=== PATIENT | female | born 1970 | race Caucasian/White ===

== ENCOUNTER 2020-08-16 17:52 | Emergency (ER) | payer OTHER ==
[~2020-08-16] VITALS: Ht 157.5 cm; Wt 85.3 kg
--- NOTE | 2020-08-16 18:15 | NUR ---
ED Nurse Note: patient from home and walked in due to hemorrhoids noticed this morning. Denies constipation. Pt is AOx4, calm and cooperative to care, VSS, on RA, afebrile on triage.
--- NOTE | 2020-08-16 18:17 | NUR ---
ED Nurse Note: ERMD at bedside.
[2020-08-16] MEDS ORDERED: DOCUSATE SODIU100 MG ORAL (18:22)
[2020-08-16] MEDS ORDERED: sitz bath (18:22)
[2020-08-16] MEDS ORDERED: ANUSOL-HC30 GM RC (18:22)
[2020-08-16 18:23] VITALS: BP 130/71
--- NOTE | 2020-08-16 18:24 | Emergency Room Report ---
History of Present Illness General Chief Complaint: Skin Rash/Abscess Source: Patient Present Illness HPI Disclaimer: Please note that this report is being documented using DRAGON technology. This can lead to erroneous entry secondary to incorrect interpretation by the dictating instrument. HPI: 49-year-old female history of hemorrhoid presents for evaluation of rectal discomfort. The patient noted some pressure around her rectum having a bowel movement earlier this morning. There was some pink coloring to the bathroom tissue. Denied gross bleeding. Denies significant pain but noticed increased pressure throughout the day. Denies abdominal pain, nausea, vomiting, diarrhea, prior abscess. No other symptoms reported at this time. PMH: Reviewed PSH: Reviewed Allergies: Reviewed Social Hx: Reviewed Allergies: Coded Allergies: LIDOCAINE (Verified Allergy, Unknown, 08/16/20) COVID-19 Screening Contact w/high risk pt: No Experienced COVID-19 symptoms?: No COVID-19 Testing performed [employer]: Yes COVID-19 Screening: Negative COVID-19 COVID-19 Testing Source: 02/2020 Review of Systems All Other Systems: negative except mentioned in HPI Physical Exam Vital Signs Date Time Temp Pulse Resp B/P (MAP) Pulse Ox O2 Delivery O2 Flow Rate FiO2 08/16/20 18:01 98.1 89 20 130/71 (90) 95 Room Air General: Awake and alert, no acute distress HEENT: NC/AT. EOMI. Resp: Normal work of breathing Abdomen: Soft, nontender, nondistended. Rectal: Small nonthrombosed soft nonbleeding external hemorrhoid. Skin: Intact. No abrasions, laceration or rash over the exposed skin MSK: Normal tone and bulk. Moving all extremities. No obvious deformity. Neuro: Awake and alert. Mentating appropriately Medical Decision Making Diagnostic Impression: Primary Impression: External hemorrhoid ER Course 49-year-old female presents for evaluation of rectal discomfort. She has a small nonthrombosed external hemorrhoid. No active bleeding. She is otherwise well appearing and shows no signs of infection or other significant comor bidities. Will prescribe Anusol, stool softeners and sitz bath. She can follow-up with her PMD. Discussed symptoms of thrombosed hemorrhoid and reasons to return to the emergency department. She understands and agrees with this treatment plan. Last Vital Signs Date Time Temp Pulse Resp B/P (MAP) Pulse Ox O2 Delivery O2 Flow Rate FiO2 08/16/20 18:01 98.1 89 20 130/71 (90) 95 Room Air Disposition: HOME, SELF-CARE Condition: Stable Scripts [sitz bath] No Conflict Check #1 Prov: Tree Urbina MD 08/16/20 Hydrocortisone Hc 2.5% Cream (ANUSOL-HC 2.5% CREAM) Y Cr 5 GM RC BID for 5 Days, #30 GM Prov: Tree Urbina MD 08/16/20 Docusate Sodium* (DOCUSATE SODIUM*) 100 Mg Capsule 100 MG ORAL THREE TIMES A DAY for 5 Days, #20 CAP Prov: Tree Urbina MD 08/16/20 Patient Instructions: Disposable Sitz Bath, Hemorrhoids Additional Instructions: Follow-up with your doctor to discuss hemorrhoids and possible need for surgical excision. Soak in the sitz bath's and apply the topical medications as instructed. Return to the emergency department new or worsening symptoms. Tree Urbina MD Aug 16, 2020 18:24
[2020-08-16 18:31] VITALS: BP 128/68
--- NOTE | 2020-08-16 18:35 | NUR ---
ER DISCHARGE NOTE: Patient is cleared to be discharged per ERMD, pt is aox4, on room air, with stable vital signs. pt was given dc and prescription instructions, pt was able to verbalize understanding, pt id band removed. pt is able to ambulate with steady gait. pt took all belongings.
== END 2020-08-16 18:31 | disposition home or self-care (01) ==
LOC: EMR 18:15
DX: K64.4 Residual hemorrhoidal skin tags (principal); Z88.8 Allergy status to other drugs, medicaments and biological substances
CPT/HCPCS: 99282